=== PATIENT | female | born 1945 | race African-American/Black ===

== ENCOUNTER 2024-11-07 15:57 | Emergency (ER) | payer SELFPAY ==
[2024-11-07] MEDS: Lidocaine 1% with EPINEPHrine 1:100,000 10 ML MDV INFILT ONE (17:03)
[2024-11-07] MEDS: Diphtheria,Pertussis(Acell),Tetanus Vaccine 0.5 ML Syringe IM ONE (17:03)
[2024-11-07] MEDS: Acetaminophen 500 MG Tab PO ONE (17:04)
[2024-11-07] MEDS: cloNIDine 0.1 MG Tab PO ONE (17:05)
[2024-11-07] MEDS: Lisinopril/Hydrochlorothiazide 10-12.5 MG Tab PO ONE (18:38)
== END 2024-11-07 19:52 | disposition home or self-care (01) ==
LOC: MW.ED 15:57
DX: S01.111A Laceration without foreign body of right eyelid and periocular area, initial encounter (principal); I10 Essential (primary) hypertension; Z23 Encounter for immunization; Z91.148 Patient's other noncompliance with medication regimen for other reason; W22.8XXA Striking against or struck by other objects, initial encounter; Y93.89 Activity, other specified
CPT/HCPCS: 12011; 70450; 70486; 90471; 90715; 99283; A9270

== ENCOUNTER 2024-11-16 16:18 | Emergency (ER) | payer SELFPAY | END 2024-11-16 16:39 | disposition left against medical advice (07) | LOC: MW.ED 16:18 | DX: S01.111D Laceration without foreign body of right eyelid and periocular area, subsequent encounter (principal); X58.XXXD Exposure to other specified factors, subsequent encounter | CPT/HCPCS: 99281 ==